=== PATIENT | male | born 2000 | race Hispanic/Latino ===

== ENCOUNTER 2022-10-28 16:17 | Emergency (ER) | payer SELFPAY ==
[2022-10-28] MEDS ORDERED: EPINEPHrine 1 MG/ML VIAL ONE (16:23)
[2022-10-28] MEDS ORDERED: methylPREDNISolone Sod Succ/PF 125 MG/2 ML VIAL ONE (16:29)
[2022-10-28] MEDS ORDERED: diphenhydrAMINE 50 MG/ML VIAL ONE (16:29)
[2022-10-28] MEDS ORDERED: Sodium Chloride 0.9% 1,000 ML ONE (16:29)
== END 2022-10-28 18:27 | disposition home or self-care (01) ==
LOC: MADERS 16:17
DX: T78.2XXA Anaphylactic shock, unspecified, initial encounter (principal)
CPT/HCPCS: 96372; 96374; 96375; J0171; J1200; J2930; J7050